=== PATIENT | female | born 1985 | race Caucasian/White ===

== ENCOUNTER 2021-12-14 21:40 | Emergency (ER) | payer SELFPAY ==
[~2021-12-14] VITALS: Ht 165.1 cm; Wt 86.2 kg
[2021-12-14 22:23] LABS: BASO # 0.1 10*3/uL (0.0-0.1); BASO % 0.5 % (0.0-1.0); EOS # 0.2 10*3/uL (0.0-0.4); EOS % 1.3 % (1.0-4.0); HEMATOCRIT 45.2 % (37.0-47.0); LYMPH # 3.1 10*3/uL (1.3-4.4); LYMPH % 23.2 % (27.0-41.0); MEAN CELL VOLUME 90.2 fl (81.0-99.0); MEAN CORPUSCULAR HGB 29.9 pg (27.0-31.0); MEAN CORPUSCULAR HGB CONC 33.2 g/dl (33.0-37.0); MEAN PLATELET VOLUME 10.6 fl (9.6-12.3); MONO # 0.9 10*3/uL (0.1-1.0); MONO % 6.8 % (3.0-9.0); NEUT # 9.1 10*3/uL (2.3-7.9); NEUT % 67.9 % (47.0-73.0); PLATELET COUNT AUTOMATED 321 10*3/uL (130-400); RED BLOOD COUNT 5.01 10*6/uL (4.10-5.10); RED CELL DISTRI WIDTH 13.5 % (0-14.5); WHITE BLOOD COUNT 13.5 10*3/uL (4.8-10.8)
[2021-12-14 22:37] LABS: ALKALINE PHOSPHATASE 65 U/L (45-117); BUN 8 mg/dl (7-24); CHLORIDE 109 mmol/L (98-107); CREATININE 0.67 mg/dL (0.55-1.02); LIPASE 162 U/L (73-393); POTASSIUM 3.8 mmol/L (3.5-5.1); SGOT/AST 10 IU/L (3-35); SGPT/ALT 17 U/L (12-78); SODIUM 137 mmol/L (136-145); TOTAL PROTEIN 7.3 gm/dL (6.4-8.2)
[2021-12-14 22:40] LABS: B-hCG (QUALITATIVE) NEGATIVE (NEGATIVE)
[2021-12-15 00:47] LABS: BILIRUBIN Negative (Negative); BLOOD Negative (Negative); CLARITY Clear (Clear); COLOR Yellow (Yellow); GLUCOSE Negative (Negative); KETONE Negative (Negative); LEUKO ESTERASE 3+ (Negative); NITRITE Negative (Negative); SPECIFIC GRAVITY <= 1.005 (1.001-1.030); UROBILINOGEN 0.2 E.U./dl (0.0-1.0)
[2021-12-15 01:01] LABS: BACTERIA TRACE; WBC 21-30 wbc/hpf (0-5)
[2021-12-15] MEDS ORDERED: METRONIDAZOLE500 M1 PO (01:49)
[2021-12-15] MEDS ORDERED: CIPRO500 MG PO (01:49)
== END 2021-12-15 01:51 | disposition home or self-care (01) ==
LOC: ED 21:40
PROVIDERS: Physician Assistant
DX: A59.9 Trichomoniasis, unspecified (principal); N39.0 Urinary tract infection, site not specified; Z88.0 Allergy status to penicillin; Z98.890 Other specified postprocedural states

== ENCOUNTER 2022-02-16 10:04 | Emergency (ER) | payer SELFPAY ==
[~2022-02-16] VITALS: Ht 160 cm; Wt 79.8 kg
[~2022-02-16 10:04] MED LIST: CIPRO500 MG PO; METRONIDAZOLE500 M1 PO
[2022-02-16] MEDS ORDERED: CLEOCIN HCL300 MG PO (11:07)
== END 2022-02-16 11:24 | disposition home or self-care (01) ==
LOC: ED 10:04
DX: K04.7 Periapical abscess without sinus (principal); Z88.0 Allergy status to penicillin; Z79.899 Other long term (current) drug therapy; Z79.2 Long term (current) use of antibiotics; Z98.890 Other specified postprocedural states

== ENCOUNTER 2022-10-04 17:36 | Emergency (ER) | payer SELFPAY ==
[~2022-10-04] VITALS: Wt 83.9 kg
[~2022-10-04 17:36] MED LIST changes: +CLEOCIN HCL300 MG PO
[2022-10-04] MEDS ORDERED: KENALOG 0.1%80 GM T (18:22)
[2022-10-04] MEDS ORDERED: PREDNISONE20 M1 PO (18:22)
== END 2022-10-04 18:27 | disposition home or self-care (01) ==
LOC: ED 17:36
DX: L23.7 Allergic contact dermatitis due to plants, except food (principal); Z88.0 Allergy status to penicillin; Z98.890 Other specified postprocedural states

== ENCOUNTER 2022-10-17 22:09 | Emergency (ER) | payer SELFPAY ==
[~2022-10-17] VITALS: Ht 160 cm; Wt 83.9 kg
[~2022-10-17 22:09] MED LIST changes: +KENALOG 0.1%80 GM T; +PREDNISONE20 M1 PO
[2022-10-17] MEDS ORDERED: PREDNISONE20 M1 PO (22:58)
== END 2022-10-17 23:35 | disposition home or self-care (01) ==
LOC: ED 22:09
DX: T63.441A Toxic effect of venom of bees, accidental (unintentional), initial encounter (principal); Z88.0 Allergy status to penicillin; Z98.890 Other specified postprocedural states; Y92.89 Other specified places as the place of occurrence of the external cause

== ENCOUNTER 2022-12-17 23:07 | Emergency (ER) | payer SELFPAY ==
[~2022-12-17] VITALS: Ht 160 cm; Wt 90.7 kg
[2022-12-17] MEDS ORDERED: CLINDAMYCIN HC300 MG PO (23:26)
== END 2022-12-17 23:53 | disposition home or self-care (01) ==
LOC: ED 23:07
DX: K08.89 Other specified disorders of teeth and supporting structures (principal); K02.9 Dental caries, unspecified; Z88.0 Allergy status to penicillin; Z98.890 Other specified postprocedural states

== ENCOUNTER 2023-09-27 09:08 | Emergency (ER) | payer SELFPAY ==
[~2023-09-27] VITALS: Ht 160 cm; Wt 99.8 kg
[~2023-09-27 09:08] MED LIST changes: +CLINDAMYCIN HC300 MG PO
[2023-09-27] MEDS ORDERED: ACETAMINOPHEN 325 MG TAB PO ONE (09:30)
[2023-09-27] MEDS ORDERED: IBUPROFEN 600 MG TAB PO ONE (09:30)
[2023-09-27] MEDS ORDERED: methylPREDNISolone sod succ 125 MG VIAL IM ONE (09:30)
[2023-09-27] MEDS ORDERED: PREDNISONE50 MG PO (10:18)
== END 2023-09-27 10:13 | disposition home or self-care (01) ==
LOC: ED 09:08
DX: S46.912A Strain of unspecified muscle, fascia and tendon at shoulder and upper arm level, left arm, initial encounter (principal); Z88.0 Allergy status to penicillin; Z98.890 Other specified postprocedural states; X58.XXXA Exposure to other specified factors, initial encounter; Y93.89 Activity, other specified; Y92.89 Other specified places as the place of occurrence of the external cause; Y99.8 Other external cause status

== ENCOUNTER 2023-10-11 11:03 | Emergency (ER) | payer SELFPAY ==
[~2023-10-11] VITALS: Ht 160 cm; Wt 99.8 kg
[~2023-10-11 11:03] MED LIST changes: +PREDNISONE50 MG PO
[2023-10-11] MEDS ORDERED: VISTARIL25 MG PO (11:45)
[2023-10-11] MEDS ORDERED: methylPREDNISolone sod succ 125 MG VIAL IM ONE (11:45)
[2023-10-11] MEDS ORDERED: hydrOXYzine pamoate 25 MG CAP PO ONE (11:45)
[2023-10-11] MEDS ORDERED: PREDNISONE20 M1 PO (11:45)
== END 2023-10-11 12:21 | disposition home or self-care (01) ==
LOC: ED 11:03
DX: L23.7 Allergic contact dermatitis due to plants, except food (principal); Z88.0 Allergy status to penicillin; Z98.890 Other specified postprocedural states

== ENCOUNTER 2024-03-10 08:49 | Emergency (ER) | payer SELFPAY ==
[~2024-03-10] VITALS: Ht 160 cm; Wt 106.6 kg
[~2024-03-10 08:49] MED LIST changes: +VISTARIL25 MG PO
[2024-03-10] MEDS ORDERED: IOHEXOL 300 MG/ML 100 ML VIAL IV ONE (09:20)
[2024-03-10] MEDS ORDERED: Ondansetron Hydrochloride 4 MG/2 ML VIAL IV ONE (09:20)
[2024-03-10] MEDS ORDERED: SODIUM CHLORIDE 0.9% 1,000 ML IV ONE (09:20)
[2024-03-10] MEDS ORDERED: Ketorolac Tromethamine 15 MG/ML VIAL IV ONE (09:20)
[2024-03-10 09:32] LABS: BASO # 0.1 10*3/uL (0.0-0.1); BASO % 0.6 % (0.0-1.0); EOS # 0.2 10*3/uL (0.0-0.4); HEMATOCRIT 43.9 % (37.0-47.0); MEAN CELL VOLUME 91.6 fl (81.0-99.0); MEAN CORPUSCULAR HGB CONC 31.7 g/dl (33.0-37.0); MEAN PLATELET VOLUME 10.9 fl (9.6-12.3); MONO # 0.7 10*3/uL (0.1-1.0); NEUT # 5.9 10*3/uL (2.3-7.9); NEUT % 60.3 % (47.0-73.0); PLATELET COUNT AUTOMATED 274 10*3/uL (130-400); RED BLOOD COUNT 4.79 10*6/uL (4.10-5.10); RED CELL DISTRI WIDTH 12.8 % (0-14.5); WHITE BLOOD COUNT 9.8 10*3/uL (4.8-10.8)
[2024-03-10 09:42] LABS: BILIRUBIN Negative (Negative); BLOOD Negative (Negative); CLARITY Cloudy (Clear); COLOR Yellow (Yellow); GLUCOSE Negative (Negative); KETONE Negative (Negative); LEUKO ESTERASE 1+ (Negative); NITRITE Negative (Negative); PH 5.5 (4.5-8.0); SPECIFIC GRAVITY 1.025 (1.001-1.030)
[2024-03-10 09:53] LABS: BUN 12 mg/dl (9-23); CHLORIDE 105 mmol/L (98-107); LIPASE 60 U/L (12-53); POTASSIUM 4.2 mmol/L (3.4-5.1)
[2024-03-10 09:57] LABS: SGPT/ALT < 7 U/L (5-49)
[2024-03-10 10:02] LABS: BACTERIA 3+
[2024-03-10] MEDS ORDERED: CEPHALEXIN500 M1 PO (11:24)
[2024-03-10] MEDS ORDERED: Ondansetron4 MG PO (11:55)
== END 2024-03-10 11:54 | disposition home or self-care (01) ==
LOC: ED 08:49
PROVIDERS: Nurse Practitioner Family
DX: N39.0 Urinary tract infection, site not specified (principal); N83.201 Unspecified ovarian cyst, right side; N28.89 Other specified disorders of kidney and ureter; R11.2 Nausea with vomiting, unspecified; Z88.0 Allergy status to penicillin; Z98.890 Other specified postprocedural states

== ENCOUNTER → 2024-03-11 | Outpatient (CLI) | payer SELFPAY ==
[~2024-03-11] MED LIST changes: +CEPHALEXIN500 M1 PO; +Ondansetron4 MG PO
[2024-03-11 16:43] LABS: FREE T4 1.17 ng/dl (0.89-1.76)
[2024-03-11 16:47] LABS: VITAMIN D, 25-HYDROXY 19.9 ng/mL (30-100)
== END | disposition home or self-care (01) ==
LOC: RESCLI 14:41
PROVIDERS: ATTEND Internal Medicine
DX: N28.89 Other specified disorders of kidney and ureter (principal); R53.83 Other fatigue; N39.0 Urinary tract infection, site not specified; R11.0 Nausea; Z79.899 Other long term (current) drug therapy; Z98.890 Other specified postprocedural states; Z88.0 Allergy status to penicillin; Z68.41 Body mass index [BMI] 40.0-44.9, adult

== ENCOUNTER → 2024-03-13 | Outpatient (CLI) | payer SELFPAY ==
[~2024-03-13] MED LIST changes: +GADOTERATE MEGLUMINE 10 MMOL/20 ML VIAL IV ONE; +SODIUM CHLORIDE 0.9% 50 ML IV ONE
== END | disposition home or self-care (01) ==
LOC: MRI 00:53
PROVIDERS: ATTEND Internal Medicine
DX: N28.1 Cyst of kidney, acquired (principal); N28.89 Other specified disorders of kidney and ureter

== ENCOUNTER → 2024-03-18 | Outpatient (CLI) | payer SELFPAY ==
[~2024-03-18] MED LIST changes: +AVPAK AZITHROM250 M1 PO; -GADOTERATE MEGLUMINE 10 MMOL/20 ML VIAL IV ONE; -SODIUM CHLORIDE 0.9% 50 ML IV ONE
== END | disposition home or self-care (01) ==
LOC: RESCLI 13:04
PROVIDERS: ATTEND Internal Medicine
DX: N28.89 Other specified disorders of kidney and ureter (principal); E55.9 Vitamin D deficiency, unspecified; E78.5 Hyperlipidemia, unspecified; Z88.0 Allergy status to penicillin; Z98.890 Other specified postprocedural states; Z79.899 Other long term (current) drug therapy; Z87.891 Personal history of nicotine dependence

== ENCOUNTER 2024-03-24 06:53 | Emergency (ER) | payer SELFPAY ==
[~2024-03-24] VITALS: Ht 160 cm; Wt 104.3 kg
[~2024-03-24 06:53] MED LIST changes: -AVPAK AZITHROM250 M1 PO
[2024-03-24] MEDS ORDERED: Metoclopramide Hydrochloride 10 MG/2 ML VIAL IV ONE (07:25)
[2024-03-24] MEDS ORDERED: diphenhydrAMINE hydrochloride 50 MG/ML VIAL IV ONE (07:25)
[2024-03-24] MEDS ORDERED: SODIUM CHLORIDE 0.9% 1,000 ML IV ONE (07:25)
[2024-03-24] MEDS ORDERED: Ketorolac Tromethamine 15 MG/ML VIAL IV ONE (07:25)
[2024-03-24 07:33] LABS: BASO # 0.1 10*3/uL (0.0-0.1); BASO % 0.7 % (0.0-1.0); EOS # 0.3 10*3/uL (0.0-0.4); HEMATOCRIT 43.1 % (37.0-47.0); MEAN CELL VOLUME 87.6 fl (81.0-99.0); MEAN CORPUSCULAR HGB 28.9 pg (27.0-31.0); MEAN CORPUSCULAR HGB CONC 32.9 g/dl (33.0-37.0); MEAN PLATELET VOLUME 10.1 fl (9.6-12.3); MONO # 0.9 10*3/uL (0.1-1.0); MONO % 10.3 % (3.0-9.0); NEUT # 4.7 10*3/uL (2.3-7.9); NEUT % 56.4 % (47.0-73.0); PLATELET COUNT AUTOMATED 293 10*3/uL (130-400); RED BLOOD COUNT 4.92 10*6/uL (4.10-5.10); RED CELL DISTRI WIDTH 12.9 % (0-14.5); WHITE BLOOD COUNT 8.3 10*3/uL (4.8-10.8)
[2024-03-24 07:51] LABS: BUN 10 mg/dl (9-23); CHLORIDE 105 mmol/L (98-107)
[2024-03-24] MEDS ORDERED: AVPAK AZITHROM250 M1 PO (08:15)
== END 2024-03-24 08:33 | disposition home or self-care (01) ==
LOC: ED 06:53
PROVIDERS: Emergency Medicine
DX: J40 Bronchitis, not specified as acute or chronic (principal); Z20.822 Contact with and (suspected) exposure to COVID-19; R51.9 Headache, unspecified; M79.10 Myalgia, unspecified site; R11.2 Nausea with vomiting, unspecified; Z88.0 Allergy status to penicillin; Z98.890 Other specified postprocedural states

== ENCOUNTER → 2024-05-06 | Outpatient (CLI) | payer SELFPAY ==
[~2024-05-06] MED LIST changes: +AVPAK AZITHROM250 M1 PO
== END | disposition home or self-care (01) ==
LOC: RESCLI 12:47
PROVIDERS: ATTEND Student in an Organized Health Care Education/Training Program
DX: R21 Rash and other nonspecific skin eruption (principal); M25.531 Pain in right wrist; R11.0 Nausea; Z79.899 Other long term (current) drug therapy; Z98.890 Other specified postprocedural states; Z88.0 Allergy status to penicillin; Z88.8 Allergy status to other drugs, medicaments and biological substances

== ENCOUNTER → 2024-05-26 | Outpatient (CLI) | payer MEDICAID | END | disposition home or self-care (01) | LOC: ORTHO 01:56 → RAD 01:56 | PROVIDERS: ATTEND Orthopaedic Surgery | DX: M25.531 Pain in right wrist (principal) ==

== ENCOUNTER 2024-06-27 02:38 | Emergency (ER) | payer BC ==
[~2024-06-27] VITALS: Ht 162.6 cm; Wt 108.9 kg
[2024-06-27] MEDS ORDERED: Ketorolac Tromethamine 60 MG/2 ML VIAL IM ONE (03:10)
[2024-06-27] MEDS ORDERED: NAPROSYN500 MG PO (03:11)
== END 2024-06-27 03:40 | disposition home or self-care (01) ==
LOC: ED 02:38
DX: S83.92XA Sprain of unspecified site of left knee, initial encounter (principal); Z88.0 Allergy status to penicillin; Z79.899 Other long term (current) drug therapy; W01.0XXA Fall on same level from slipping, tripping and stumbling without subsequent striking against object, initial encounter; Y93.89 Activity, other specified; Y92.89 Other specified places as the place of occurrence of the external cause; Y99.8 Other external cause status

== ENCOUNTER 2024-07-30 22:42 | Emergency (ER) | payer BC ==
[~2024-07-30] VITALS: Ht 160 cm; Wt 98.4 kg
[~2024-07-30 22:42] MED LIST changes: +NAPROSYN500 MG PO
[2024-07-30] MEDS ORDERED: Ketorolac Tromethamine 30 MG/ML VIAL IM ONE (23:10)
[2024-07-30] MEDS ORDERED: methylPREDNISolone sod succ 125 MG VIAL IM ONE (23:10)
== END 2024-07-31 00:31 | disposition home or self-care (01) ==
LOC: ED 22:42
DX: M10.062 Idiopathic gout, left knee (principal); Z79.899 Other long term (current) drug therapy; Z88.0 Allergy status to penicillin

== ENCOUNTER 2024-08-24 23:22 | Emergency (ER) | payer BC ==
[~2024-08-24] VITALS: Ht 160 cm; Wt 104.3 kg
[2024-08-24] MEDS ORDERED: methylPREDNISolone sod succ 125 MG VIAL IM ONE (23:45)
== END 2024-08-25 00:07 | disposition home or self-care (01) ==
LOC: ED 23:22
DX: M11.262 Other chondrocalcinosis, left knee (principal); Z88.0 Allergy status to penicillin; Z98.890 Other specified postprocedural states